=== PATIENT | male | born 1980 | race Caucasian/White ===

== ENCOUNTER 2019-02-14 17:43 | Emergency (ER) | payer OTHER ==
--- NOTE | 2019-02-14 18:04 | EDM.PDOC ---
ED HPI GENERAL MEDICAL PROBLEM - General Chief Complaint: Trauma Stated Complaint: RIB INJURY - DUE TO FALL Time Seen by Provider: 02/14/19 18:03 Source of Information: Reports: Patient History Limitations: Reports: No Limitations - History of Present Illness INITIAL COMMENTS - FREE TEXT/NARRATIVE: 38-year-old male attends the ED for assessment of injury to his right anterior lateral ribs secondary to fall yesterday in the workplace. patient states was his first day on the job and he was up on a ladder approximately 5 feet above ground level. He states somehow the bottom of the ladder got kicked out from underneath him and he fell approximately be 5 feet landing hard on his right thorax on top of a 2 inch piece of steel plate.. He denies his head or losing consciousness. He did have all the wind knocked out of him however. Now he has severe pain with deep inspiration sharp stabbing and hurts very badly to cough. Hasn't eaten much today. I'll function has been normal. Eyes any obvious blood in his urine. States he has broken ribs on the left side in the past and required surgery I believe because of the formation of an empyema. Onset: Sudden Onset Date: 02/13/19 Onset Time: 08:00 Duration: Hour(s): (Being seen about 34 hours post injury.), Getting Worse Location: Reports: Chest (Right anterior lateral chest wall) Quality: Reports: Sharp, Stabbing, Other (As with deep breathing) Severity: Moderate (8 out of 10) Improves with: Reports: Rest (And shallow breathing) Worsens with: Reports: Other (Deep breaths or coughing.), Movement Context: Reports: Trauma (Fellow partially 5 feet off of the ladder onto a 2 inch piece of pipe. An injury to his anterior lateral right ribs occurred at that time). Denies: Activity, Exercise, Lifting, Sick Contact Associated Symptoms: Reports: Loss of Appetite, Shortness of Breath (Can't take a full deep breath.). Denies: Confusion, Chest Pain, Cough, cough w sputum, Diaphoresis, Fever/Chills, Headaches, Malaise, Nausea/Vomiting, Rash, Seizure, Syncope, Weakness Treatments CATERING CHEF: Reports: Acetaminophen, NSAIDS (Motrin. The patient is on methadone chronically for previous problems with narcotics.) Right Trunk Pain Score (Numeric/FACES): 10 - Related Data Allergies Allergy/AdvReac Type Severity Reaction Status Date / Time codeine Allergy Anaphylactic Verified 02/14/19 17:48 Shock Home Meds: Home Meds ALPRAZolam [Xanax] 1 mg PO BID PRN 02/14/19 [History] Lisinopril/Hydrochlorothiazide [Lisinopril-Hctz 20-25 mg Tab] 1 tab PO DAILY [History] Methadone 55 mg PO DAILY 02/14/19 [History] Past Medical History Cardiovascular History: Reports: Hypertension Psychiatric History: Reports: Addiction, Anxiety Social & Family History - Living Situation & Occupation Occupation: Employed (Started a new job yesterday where he got hurt.) Review of Systems - Review of Systems Review Of Systems: See Below Constitutional: Denies: Chills, Diaphoresis, Fever, Weakness, Other Eyes: Denies: No Symptoms, Blindness, Blurred Vision, Drainage, Decreased Acuity , Foreign Body Sensation Ears: Reports: No Symptoms Nose: Reports: No Symptoms Mouth/Throat: Reports: No Symptoms Respiratory: Reports: Shortness of Breath, Pleuritic Chest Pain. Denies: Wheezing Cardiovascular: Reports: Other (Has hypertension. On lisinopril) GI/Abdominal: Denies: Abdominal Pain, Bloody Stool, Constipation, Hematemesis, Nausea, Vomiting Genitourinary: Reports: No Symptoms, Other (Has not noticed any blood in his urine) Musculoskeletal: Reports: Other (Right thoracic pain.) Skin: Reports: Other (While contusion right dorsal hand) Neurological: Reports: No Symptoms Psychiatric: Reports: No Symptoms ED EXAM, GENERAL - Physical Exam Exam: See Below Exam Limited By: No Limitations General Appearance: Alert, WD/WN, Moderate Distress, Other (He is in obvious pain.) Eye Exam: Bilateral Eye: Normal Inspection Throat/Mouth: Normal Inspection, Normal Lips, Normal Teeth, Normal Oropharynx, Other Head: Atraumatic (No dental or tongue injury.), Normocephalic Neck: Normal Inspection, Supple, Non-Tender, Full Range of Motion, Other (Full unopposed range of motion of his neck.). No: Lymphadenopathy (L), Lymphadenopathy (R) Respiratory/Chest: Lungs Clear, No Accessory Muscle Use (Shallow respirations.) , Other (S wall is very tender from ribs 7-10 anterior laterally on the right side. There is no obvious abrasions contusions or crepitus or subcutaneous emphysema.). No: Normal Breath Sounds Cardiovascular: Normal Peripheral Pulses, Regular Rate, Rhythm, No Edema, No Gallop, No JVD, No Murmur, No Rub Peripheral Pulses: 3+: Posterior Tibial (L), Posterior Tibial (R), Dorsalis Pedis (L), Dorsalis Pedis (R) GI/Abdominal: Normal Bowel Sounds, Soft, Non-Tender, No Organomegaly, No Distention, No Abnormal Bruit, No Mass, Pelvis Stable, Other. No: Guarding, Rigid, Rebound Back Exam: Normal Inspection, Other (Him tenderness posterior laterally on the ribs but there is no obvious contusion abrasions to the true back.) Extremities: Other (Has a contusion over his second MCP joint right hand and little bruising over the fifth) Neurological: Alert, Oriented, CN II-XII Intact, Normal Cognition Psychiatric: Normal Affect, Anxious, Other Skin Exam: Warm, Dry, Intact (He is in obvious pain), Normal Color, No Rash Course - Vital Signs Last Recorded V/S: Last Vital Signs Temp 37.1 C 02/14/19 17:51 Pulse 81 02/14/19 17:51 Resp 20 02/14/19 17:51 BP Pulse Ox 97 02/14/19 17:51 - Orders/Labs/Meds Orders: Active Orders 24 hr Category Date Time Status URINALYSIS W/MICROSCOPIC [UA W/MICROSCOPIC] [URIN] Stat Lab 02/14/19 18:47 Received - Radiology Interpretation Free Text/Narrative:: 38-year-old male attends the ED for evaluation of injuries to his right anterior lateral thorax that occurred from a fall yesterday in the workplace. Patient states he started a job yesterday. He was up about 5 feet on a ladder when somehow the foot of the latter got kicked out from underneath him. He states he fell partially 5 feet onto a 2 inch piece of steel pipe. Landed hard on his right lateral chest wall. It knocked the wind out of him. He did try and finish workout the rest of the day since it was his first day on the job. He was unable to go to work today however because of the intensity of the pain in his right ribs. As the day has gone on the pain is increased in intensity and is worse with deep breathing and/or coughing. Examination reveals pain from ribs are evident to 10 anterior laterally. No subcutaneous and emphysema or crepitus identified. Plan: CT chest without contrast - Re-Assessments/Exams Free Text/Narrative Re-Assessment/Exam: 02/14/19 18:59 T of the chest has been completed without contrast. It reveals no signs of a pneumothorax or pulmonary contusion. I cannot visualize any fractures in ribs on the right side at all. Also the liver and kidney on the right side are normal without any evidence of contusion or injury. Therefore his injuries are soft tissue/bruised ribs. Departure - Departure Time of Disposition: 19:01 Disposition: Home, Self-Care 01 Condition: Fair Clinical Impression: Contusion of chest wall with intact skin - Discharge Information *PRESCRIPTION DRUG MONITORING PROGRAM REVIEWED*: Not Applicable *COPY OF PRESCRIPTION DRUG MONITORING REPORT IN PATIENT BREANNE: Not Applicable Instructions: Contusion, [id number], Blunt Chest Trauma Referrals: PCP,Not In Area [Primary Care Provider] - Forms: ED Department Discharge, ED Return to Work/School Form Additional Instructions: Evaluation in the emergency room today in regards to fall in the workplace yesterday with blunt force trauma to your right chest wall injuring the seventh to 10th ribs anteriorly laterally. CT scan of your chest reveals no injury to the underlying lung such as a Odilon longer pulmonary contusion and no ruptured long which we call a pneumothorax. Also no rib fractures are identified and visualized portions of the liver and kidney on the right side also normal. Therefore treatment is time to heal. Expect to be a little bit worse tomorrow because of bleeding into the muscles between the ribs and then slowly things will improve. It takes at least 10-14 days to get through badly bruised ribs. Note given to take you out of the workplace until next February 20 when you can hopefully return to work with relatively light duties until you fully recover from rib injuries. It is okay to take ibuprofen or Motrin 600 mg every 6 hours to relieve pain and inflammation. Suggest Manuel wrap on during the day and off at night with 10 deep breaths per hour while awake ,as we discussed. - My Orders Last 24 Hours: My Active Orders 02/14/19 18:47 URINALYSIS W/MICROSCOPIC [UA W/MICROSCOPIC] [URIN] Stat - Assessment/Plan Last 24 Hours: My Active Orders 02/14/19 18:47 URINALYSIS W/MICROSCOPIC [UA W/MICROSCOPIC] [URIN] Stat
--- NOTE | 2019-02-14 18:56 | CT ---
CT chest Technique: Multiple axial sections were obtained from above the lung apices inferiorly through the lung bases. Intravenous contrast was not utilized. Findings: Mediastinum and hilar regions appear unremarkable. No pericardial effusions or thickening is seen. Small portion of the visualized upper abdominal structures appear within normal limits. Lungs are clear with no acute parenchymal change. Minimal left basilar atelectasis is incidentally noted. Bone window settings were reviewed which shows no discrete rib abnormality. Vertebral body heights are maintained within the thoracic spine. No acute osseous abnormality is appreciated. Impression: 1. Incidental findings. Nothing acute is appreciated on noncontrast CT study of the chest. Diagnostic code #2
[2019-02-14] MEDS ORDERED: Ibuprofen 800 MG Tab PO ONE (19:07)
== END 2019-02-14 19:20 | disposition home or self-care (01) ==
LOC: JD.ED 17:43
DX: S20.211A Contusion of right front wall of thorax, initial encounter (principal); I10 Essential (primary) hypertension; F41.9 Anxiety disorder, unspecified; Z88.5 Allergy status to narcotic agent; Z79.899 Other long term (current) drug therapy; W11.XXXA Fall on and from ladder, initial encounter; Y99.0 Civilian activity done for income or pay
CPT/HCPCS: 71250; 81001; 99284; A9270; 99283

== ENCOUNTER 2019-03-03 10:12 | Emergency (ER) | payer MEDICAID, OTHER ==
[2019-03-03] MEDS ORDERED: ALPRAZolam 1 MG Tab PO ONE (11:12)
--- NOTE | 2019-03-03 11:27 | EDM.PDOCBH ---
ED HPI GENERAL MEDICAL PROBLEM - General Chief Complaint: Behavioral/Psych Stated Complaint: SEVERE PANIC AND ANXIETY ATTACK Time Seen by Provider: 03/03/19 10:53 Source of Information: Reports: Patient, RN Notes Reviewed History Limitations: Reports: No Limitations - History of Present Illness INITIAL COMMENTS - FREE TEXT/NARRATIVE: Patient is a 38-year-old male who presents to the ED for the evaluation of a panic attack. The patient states he recently just moved here from [place] for a new job and he believes that he may have inadvertently thrown his Xanax in the garbage during the move. He is a patient of Dr. Faye at the [facility] but his doctor is out of the office on Fridays. He did state that he called his doctor for an early fill on Wednesday. He thought he would be okay this weekend without them but he states he woke up feeling dizzy, lightheaded, with extreme anxiety and didn't feel like he could make it until Wednesday. He states that he is trying to wean himself off of these, some days he only needs one per day other days he needs 3 per day. He also notes a history of PTSD, bipolar depression, anxiety, increased stress at home, and recently him and his just had a baby. The patient verbalizes the understanding that he needs to set up care with a psychiatrist in this area but has not done so. He states that Dr. Faye is in the process of getting his files transferred here so that he may continue care in this area. - Related Data Allergies Allergy/AdvReac Type Severity Reaction Status Date / Time codeine Allergy Anaphylactic Verified 03/03/19 10:41 Shock propranolol Allergy Nausea and Verified 03/03/19 10:43 Vomiting Home Meds: Home Meds ALPRAZolam [Xanax] 1 mg PO TID PRN 02/14/19 [History] Lisinopril/Hydrochlorothiazide [Lisinopril-Hctz 20-25 mg Tab] 25 mg PO DAILY [History] Methadone 40 mg PO DAILY 02/14/19 [History] ALPRAZolam [Xanax] 1 mg PO TID PRN #15 tablet 03/03/19 [Rx] Past Medical History - Past Health History Medical/Surgical History: Denies Medical/Surgical History Cardiovascular History: Reports: Hypertension Musculoskeletal History: Reports: Back Pain, Chronic Other Musculoskeletal History: L4/5 fx Psychiatric History: Reports: Addiction, Anxiety, Panic Attack, Psych Hospitalization(s) Social & Family History - Tobacco Use Smoking Status *Q: Current Every Day Smoker Years of Tobacco use: 20 Packs/Tins Daily: 1 - Caffeine Use Caffeine Use: Reports: Coffee - Recreational Drug Use Recreational Drug Use: Yes Recreational Drug Type: Reports: Heroin Recreational Drug Last Use: 5 years ago - Living Situation & Occupation Occupation: Employed (Started a new job yesterday where he got hurt.) ED ROS GENERAL - Review of Systems Review Of Systems: See Below Constitutional: Reports: No Symptoms HEENT: Reports: No Symptoms Respiratory: Reports: Shortness of Breath Cardiovascular: Reports: Lightheadedness Endocrine: Reports: No Symptoms GI/Abdominal: Reports: Nausea. Denies: Constipation, Diarrhea, Vomiting : Reports: No Symptoms Musculoskeletal: Reports: No Symptoms Skin: Reports: No Symptoms Neurological: Denies: Confusion, Headache Psychiatric: Reports: Anxiety (visibly anxious in room, rocking back an forth on ED cot.) Hematologic/Lymphatic: Reports: No Symptoms Immunologic: Reports: No Symptoms ED EXAM, BEHAVIORAL HEALTH - Physical Exam Exam: See Below Exam Limited By: No Limitations General Appearance: Alert, WD/WN, No Apparent Distress Eye Exam: Bilateral Eye: EOMI, Normal Inspection, PERRL Ears: Normal External Exam Nose: Normal Inspection Throat/Mouth: Normal Inspection, Normal Oropharynx, No Airway Compromise Head: Atraumatic, Normocephalic Neck: Normal Inspection Respiratory/Chest: No Respiratory Distress, Lungs Clear, Normal Breath Sounds, No Accessory Muscle Use, Chest Non-Tender Cardiovascular: Normal Peripheral Pulses, Regular Rate, Rhythm, No Murmur GI/Abdominal: Normal Bowel Sounds, Soft, Non-Tender, No Distention Extremities: Normal Inspection, Normal Capillary Refill Neurological: Alert, Normal Mood/Affect, Normal Cognition, Normal Gait, Normal Reflexes, Oriented x 3 Psychiatric: Alert, Normal Affect, Normal Cognition, Normal Mood, Oriented, Other (Patient is visibly anxious at bedside. He is rocking back and forth on the ED cot.) Skin Exam: Warm, Dry, Intact, Normal color, No rash COURSE, BEHAVIORAL HEALTH COMP - Course Vital Signs: Last Vital Signs Temp 98.6 F 03/03/19 10:22 Pulse 93 03/03/19 10:22 Resp 20 03/03/19 10:22 BP 146/85 H 03/03/19 10:22 Pulse Ox 100 03/03/19 10:22 Orders, Labs, Meds: Medications Discontinued Medications Generic Name Dose Route Start Last Admin Trade Name Lili PRN Reason Stop Dose Admin Alprazolam 1 mg 03/03/19 11:12 03/03/19 11:24 Xanax PO 03/03/19 11:13 1 mg ONETIME ONE Administration Discharge vs Psych Eval/Treatment:: 03/03/19 11:28 Patient presents to the ED for the evaluation of a anxiety attack. I did check the PDMP, he did get a recent fill of 120 tablets on [address] Faye in [place]. I do believe his story at this time, I will give him 15 tablets of Xanax so that he may make it throughout the weekend so that he can get his prescription refilled by Dr. Faye early on Wednesday. Departure - Departure Time of Disposition: 11:29 Disposition: Home, Self-Care 01 Condition: Fair Clinical Impression: Panic attack, Anxiety - Discharge Information *PRESCRIPTION DRUG MONITORING PROGRAM REVIEWED*: Yes *COPY OF PRESCRIPTION DRUG MONITORING REPORT IN PATIENT BREANNE: No Prescriptions: ALPRAZolam [Xanax] 1 mg PO TID PRN #15 tablet PRN Reason: Anxiety Instructions: Panic Attack, [id number] Referrals: PCP,None [Primary Care Provider] - Forms: ED Department Discharge Additional Instructions: You have been evaluated in the ED today for your panic attack. You have been prescribed alprazolam, 1 mg 3 times a day as needed for feelings of anxiety. This was electronically sent to [facility] pharmacy located near [facility]. You have only been given enough tablets to get you through the weekend however, you will need to follow up with Dr. Faye for a early refill on your alprazolam on Wednesday. Recommend that you set up care with a psychiatrist here as early as possible, the [facility] does provide these services, their telephone number is [phone] Please return to the ED if your symptoms change or worsen.
== END 2019-03-03 11:37 | disposition home or self-care (01) ==
LOC: JD.ED 10:12
DX: F41.0 Panic disorder [episodic paroxysmal anxiety] (principal); F17.210 Nicotine dependence, cigarettes, uncomplicated; I10 Essential (primary) hypertension; Z79.899 Other long term (current) drug therapy; Z88.5 Allergy status to narcotic agent; Z88.8 Allergy status to other drugs, medicaments and biological substances
CPT/HCPCS: 99283; A9270

== ENCOUNTER 2019-03-08 22:33 | Emergency (ER) | payer MEDICAID ==
--- NOTE | 2019-03-08 23:07 | EDM.PDOCBH ---
ED HPI GENERAL MEDICAL PROBLEM - General Chief Complaint: Behavioral/Psych Stated Complaint: ANXIETY/PANIC ATTACK Time Seen by Provider: 03/08/19 23:00 - History of Present Illness INITIAL COMMENTS - FREE TEXT/NARRATIVE: 38-year-old male returns emergency room as he is out of his Xanax. Patient recently moved here from [facility] somehow during the move he misplaced his Xanax. He is not due for refill until the middle of next week. He was seen here 4 days ago and received 9 pills he has been on the phone and did get a refill but the computer will not one of the middle of next week. - Related Data Allergies Allergy/AdvReac Type Severity Reaction Status Date / Time codeine Allergy Anaphylactic Verified 03/08/19 22:50 Shock propranolol Allergy Nausea and Verified 03/08/19 22:50 Vomiting Home Meds: Home Meds Lisinopril/Hydrochlorothiazide [Lisinopril-Hctz 20-25 mg Tab] 25 mg PO DAILY [History] Methadone 40 mg PO DAILY 02/14/19 [History] ALPRAZolam [Xanax] 1 mg PO TID PRN #15 tablet 03/03/19 [Rx] Past Medical History - Past Health History Medical/Surgical History: Denies Medical/Surgical History Cardiovascular History: Reports: Hypertension Musculoskeletal History: Reports: Back Pain, Chronic Other Musculoskeletal History: L4/5 fx Psychiatric History: Reports: Addiction, Anxiety, Panic Attack, Psych Hospitalization(s) Social & Family History - Tobacco Use Smoking Status *Q: Current Every Day Smoker Years of Tobacco use: 20 Packs/Tins Daily: 1 - Caffeine Use Caffeine Use: Reports: Coffee - Recreational Drug Use Recreational Drug Type: Reports: Heroin Recreational Drug Use Frequency: Not Used In Over 6 Months Recreational Drug Last Use: 2013 - Living Situation & Occupation Occupation: Employed (Started a new job yesterday where he got hurt.) ED ROS GENERAL - Review of Systems Review Of Systems: See Below Constitutional: Reports: No Symptoms Respiratory: Reports: No Symptoms Cardiovascular: Reports: No Symptoms GI/Abdominal: Reports: No Symptoms ED EXAM, BEHAVIORAL HEALTH - Physical Exam Exam: See Below Exam Limited By: No Limitations General Appearance: Alert, No Apparent Distress Head: Atraumatic, Normocephalic Neck: Normal Inspection, Supple, Non-Tender, Full Range of Motion Respiratory/Chest: No Respiratory Distress, Lungs Clear, Normal Breath Sounds, No Accessory Muscle Use, Chest Non-Tender Cardiovascular: Normal Peripheral Pulses, Regular Rate, Rhythm, No Edema, No Gallop, No JVD, No Murmur, No Rub COURSE, BEHAVIORAL HEALTH COMP - Course Vital Signs: Last Vital Signs Temp 36.7 C 03/08/19 22:44 Pulse 64 03/08/19 22:44 Resp 20 03/08/19 22:44 BP 144/88 H 03/08/19 22:44 Pulse Ox 99 03/08/19 22:44 Orders, Labs, Meds: Active Orders 24 hr Category Date Time Status ALPRAZolam [Xanax] Med 03/08/19 23:08 Once 1 mg PO ONETIME ONE Discharge vs Psych Eval/Treatment:: 03/08/19 23:11 I've explained the patient no uncertain terms that emergency room visit very inappropriate place to get his meds refilled. I understand he is in a tough situation right now and I agreed to give him 2 days worth of medications however if he needs to drive back to [place] to get this sorted out then that is what he must do. He is strongly encouraged to follow-up with her regular provider here and apparently that's already in the works with the emergency room should not be used to refill medications so after this time not to expect us to refill them. 03/08/19 23:16 [facility] is giving one Xanax from our stock and a prescription for #5 to be used every 8 hours Departure - Departure Time of Disposition: 23:12 Disposition: Home, Self-Care 01 Clinical Impression: Anxiety - Discharge Information Referrals: PCP,Not In Area [Primary Care Provider] - Forms: ED Department Discharge Additional Instructions: Return to emergency room with questions or problems however please understand this is not an appropriate place to get refills of your medication. And do not expect refills in the future. If you need to go back to [place] to get a refill then you must do this or get established quickly with someone here who will refill your medications - My Orders Last 24 Hours: My Active Orders 03/08/19 23:08 ALPRAZolam [Xanax] 1 mg PO ONETIME ONE - Assessment/Plan Last 24 Hours: My Active Orders 03/08/19 23:08 ALPRAZolam [Xanax] 1 mg PO ONETIME ONE
[2019-03-08] MEDS ORDERED: ALPRAZolam 1 MG Tab PO ONE (23:08)
== END 2019-03-08 23:24 | disposition home or self-care (01) ==
LOC: JD.ED 22:33
DX: F41.9 Anxiety disorder, unspecified (principal); I10 Essential (primary) hypertension; F17.210 Nicotine dependence, cigarettes, uncomplicated; Z88.5 Allergy status to narcotic agent; Z88.8 Allergy status to other drugs, medicaments and biological substances; Z79.899 Other long term (current) drug therapy
CPT/HCPCS: 99283; A9270